=== PATIENT | female | born 1960 ===

== ENCOUNTER 2021-08-19 05:18 | Day surgery (SDC) | payer OTHER ==
[~2021-08-19 05:18] MED LIST: COZAAR100 MG PO; CRESTOR20 MG PO; [UNRECOGNIZED DRUG - OTHER] PO
[2021-08-19] MEDS ORDERED: PERCOCET 5-3251 EACH PO (08:44)
[2021-08-19] MEDS ORDERED: RECTICARE30 GM TOP (08:45)
== END 2021-08-19 13:25 | disposition home or self-care (01) ==
LOC: CIR.AMB 05:18
PROVIDERS: ATTEND Surgery
DX: K64.2 Third degree hemorrhoids (principal); K60.1 Chronic anal fissure; K57.30 Diverticulosis of large intestine without perforation or abscess without bleeding; K57.20 Diverticulitis of large intestine with perforation and abscess without bleeding; Z20.822 Contact with and (suspected) exposure to COVID-19; I10 Essential (primary) hypertension